=== PATIENT | male | born 1995 ===

== ENCOUNTER 2017-05-04 22:23 | Emergency (ER) | payer OTHER ==
[2017-05-04 22:29] VITALS: BP 108/71
--- NOTE | 2017-05-04 22:52 | ED INFLUENZA/URI COMPLAINT ---
History of Present Illness General Chief Complaint: General Adult Stated Complaint: PT THINKS HE HAS BRONCHITIS Source: patient Exam Limitations: no limitations Vital Signs & Intake/Output Vital Signs & Intake/Output Vital Signs Date Time Temp Pulse Resp B/P B/P Pulse O2 O2 Flow FiO2 Mean Ox Delivery Rate 05/04 2229 97.8 86 22 108/71 97 Allergies Coded Allergies: NO KNOWN ALLERGIES (07/15/13) Reconcile Medications No Known Home Medications Triage Note: PER PT "THINK I HAVE BRONCHITIS" DRY THROAT X 3 DAYS, DRY COUGH HACKY AND NASAL CONGESTION Triage Nurses Notes Reviewed? 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 EENTM: Reports: no symptoms. Respiratory: Reports: no symptoms. Cardiovascular: Reports: no symptoms. GI: Reports: no symptoms. Genitourinary: Reports: no symptoms. Musculoskeletal: Reports: no symptoms. Skin: Reports: no symptoms. Neurological/Psychological: Reports: no symptoms. Hematologic/Endocrine: Reports: no symptoms. Immunologic/Allergic: Reports: no symptoms. All Other Systems: Reviewed and Negative Departure Departure Condition: Stable Referrals: NEGIN PALM,ISAAC Villareal (PCP/Family) Departure Forms: Customer Survey General Discharge Information Prescriptions: Current Visit Scripts No Known Home Medications
[2017-05-04] MEDS ORDERED: ZITHROMAX250 M2 PO (23:00)
[2017-05-04] MEDS ORDERED: BROMFED DM COU118 M1 PO (23:00)
[2017-05-04] MEDS ORDERED: PROVENTIL HFA6.7 GM INH (23:00)
--- NOTE | 2017-05-04 23:00 | ED INFLUENZA/URI COMPLAINT ---
History of Present Illness General Chief Complaint: General Adult Stated Complaint: PT THINKS HE HAS BRONCHITIS Source: patient Exam Limitations: no limitations Vital Signs & Intake/Output Vital Signs & Intake/Output Vital Signs Date Time Temp Pulse Resp B/P B/P Pulse O2 O2 Flow FiO2 Mean Ox Delivery Rate 05/04 2229 97.8 86 22 108/71 97 ED Intake and Output 05/05 0000 05/04 1200 Intake Total Output Total Balance Patient 165 lb Weight Weight Standing Scale Measurement Method Allergies Coded Allergies: NO KNOWN ALLERGIES (07/15/13) Reconcile Medications Albuterol Sulfate (Proventil Hfa) 90 MCG HFA.AER.AD 2 PUF INH Q4 COUGH Azithromycin (Zithromax) 250 MG TABLET 1 DP PO AD BRONCHITIS 2 the first day followed by 1 for days 2-5 Brompheniramine/Pseudoephed/Dm (Bromfed Dm Cough Syrup) 2 MG-30 MG-10 MG/5 ML SYRUP 5-10 ML PO Q4-6 PRN PRN COUGH Triage Note: PER PT "THINK I HAVE BRONCHITIS" DRY THROAT X 3 DAYS, DRY COUGH HACKY AND NASAL CONGESTION Triage Nurses Notes Reviewed? yes Onset: Abrupt Duration: day(s): (few), constant, continues in ED Timing: recent history Severity: moderate, severe No Modifying Factors: none HPI: 21-year-old male comes into emergency room for further evaluation of cough, chills, body aches, runny nose, and sore throat. Symptoms been going on for the past 3 days. Denies any vomiting. Denies any difficulty breathing. Denies any other associated symptoms. Nothing seems to make the symptoms better or worse. (FRANKLIN LANGLEY) Past History Travel History Traveled to [place] past 21 day No Medical History Any Pertinent Medical History? 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 No (FRANKLIN LANGLEY) Review of Systems Review of Systems Constitutional: Reports: see HPI. EENTM: Reports: see HPI. Respiratory: Reports: see HPI. Cardiovascular: Reports: no symptoms. GI: Reports: no symptoms. Genitourinary: Reports: no symptoms. Musculoskeletal: Reports: no symptoms. Skin: Reports: no symptoms. Neurological/Psychological: Reports: no symptoms. Hematologic/Endocrine: Reports: no symptoms. Immunologic/Allergic: Reports: no symptoms. All Other Systems: Reviewed and Negative (FRANKLIN LANGLEY) Physical Exam Physical Exam General Appearance: well developed/nourished, alert, awake Head: atraumatic, normal appearance Eyes: Bilateral: normal appearance. Ears, Nose, Throat: moist mucous membrane, hearing grossly normal Neck: normal inspection Respiratory: normal breath sounds, no respiratory distress Cardiovascular: regular rate/rhythm Back: normal range of motion Extremities: normal inspection, normal range of motion, no edema Neurologic/Psych: awake, alert, oriented x 3, normal gait, normal mood/affect Skin: intact, normal color Core Measures Severe Sepsis Present: No Septic Shock Present: No (FRANKLIN LANGLEY) Progress Differential Diagnosis: influenza, meningitis, neutropenia, otitis, pneumonia, pharyngitis, sinusitis, bronchitis Plan of Care: 05/04/2017 11:05:27 PM Patient clinically looks well. Patient is in no apparent distress. Clinically looks well. Symptoms consistent with likely viral illness. Patient will follow -up with primary care doctor. Return if he other concerns. Understands and agrees with plan of care. Initial ED EKG: none (FRANKLIN LANGLEY) Departure Departure Disposition: HOME OR SELF CARE Condition: Stable Clinical Impression Primary Impression: Bronchitis Referrals: NEGIN PALM,ISAAC Villareal (PCP/Family) Additional Instructions: Take Z-Pedro Pablo, albuterol, and Bromfed as prescribed. Follow-up with your primary care doctor. Return if any concerns worsening symptoms. Please go over all results of today's visit with your primary care doctor. Contact your primary care doctor to let them know you were here in the emergency room. There may be nonspecific findings which may not be related to your visit today here in the emergency room but may require further evaluation and chronic monitoring by your primary care doctor. If you had a laceration today the chance of foreign body always remains. You should follow-up with your primary care doctor for recheck in 3-5 days for a wound check. If you had an x-ray done there is a chance that a fracture could have been missed on initial read and you should follow-up with your primary care doctor for repeat x-rays if symptoms persist. If your blood pressure was elevated here in the emergency room please have rechecked by her primary care doctor within the next 48 hours by your primary care doctor. If you were prescribed a narcotic here in the emergency room or any type of controlled substances you're not allowed to drive while taking this medication or operate any type of heavy machinery. Narcotics can make you feel lightheaded dizziness nausea and can cause constipation. 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 Thank you for choosing [facility] emergency room. Please return to the emergency room immediately if you have any other concerns worsening of symptoms. Departure Forms: Customer Survey General Discharge Information Prescriptions: Current Visit Scripts Azithromycin (Zithromax) 1 DP PO AD #6 TAB 2 the first day followed by 1 for days 2-5 Brompheniramine/Pseudoephed/Dm (Bromfed Dm Cough Syrup) 5-10 ML PO Q4-6 PRN PRN COUGH #120 ML Albuterol Sulfate (Proventil Hfa) 2 PUF INH Q4 #1 INHAL (FRANKLIN LANGLEY) PA/BARBECUE COOK Co-Sign Statement Statement: ED Attending supervision documentation- [] I saw and evaluated the patient. I have also reviewed all the pertinent lab results and diagnostic results. I agree with the findings and the plan of care as documented in the PA's/BARBECUE COOK's documentation. [x] I have reviewed the ED Record and agree with the PA's/BARBECUE COOK's documentation. [] Additions or exceptions (if any) to the PAs/BARBECUE COOK's note and plan are summarized below: [] (LENORA PALM,ASHLEY Webster)
== END 2017-05-04 23:22 ==
LOC: ERH 22:23
DX: J40 Bronchitis, not specified as acute or chronic (principal)